=== PATIENT | male | born 1970 | race Hispanic/Latino ===

== ENCOUNTER 2017-05-04 07:23 | Emergency (ER) | payer OTHER ==
[~2017-05-04] VITALS: Ht 180.3 cm; Wt 129.9 kg
[2017-05-04 07:29] VITALS: BP 140/85; TEMP 98.2
[2017-05-04 07:56] LABS: PLATELET COUNT 216 K/uL (142-355)
[2017-05-04 08:07] LABS: POTASSIUM 4.5 mmol/L (3.6-5.2); SODIUM 140 mmol/L (136-145)
[2017-05-04 09:46] LABS: PARTIAL THROMBOPLASTIN TIME 26.5 SECONDS (24.5-33.6)
== END 2017-05-04 11:20 | disposition short-term general hospital (02) ==
LOC: ED 07:23
PROVIDERS: Family Medicine
DX: R07.89 Other chest pain (principal); I20.0 Unstable angina
CPT/HCPCS: 36415; 80053; 82150; 82550; 83690; 84484; 85027; 85610; 85730; 93005; 96365; 96375; 99285; J1644

== ENCOUNTER 2017-05-04 11:23 | Outpatient (CLI) | payer OTHER | END 2017-05-04 11:55 | disposition short-term general hospital (02) | LOC: AMB 11:23 | DX: R07.89 Other chest pain (principal); I20.0 Unstable angina | CPT/HCPCS: A0425; A0427 ==

== ENCOUNTER 2020-04-22 13:03 | Outpatient (CLI) | payer OTHER | END 2020-04-22 20:09 | disposition home or self-care (01) | LOC: LAB 13:03 | DX: U07.1 COVID-19 (principal); Z20.828 Contact with and (suspected) exposure to other viral communicable diseases; R50.9 Fever, unspecified; R05 Cough | CPT/HCPCS: 87635; G2023; U0003 ==